=== PATIENT | male | born 1980 | race Caucasian/White ===

== ENCOUNTER 2019-02-12 16:29 | Emergency (ER) | payer MEDICAID ==
[~2019-02-12] VITALS: Ht 190.5 cm; Wt 84.1 kg
[~2019-02-12 16:29] MED LIST: ADDERALL20 MG PO; MORPHINE10 MG PO; NO HOME MEDICATIONS; NORCO 325 MG-51 TAB PO; XANAX1 MG PO
[2019-02-12 16:33] VITALS: BP 141/88; TEMP 98.7
[2019-02-12] MEDS ORDERED: NORCO 325 MG-51 TAB PO (16:58)
[2019-02-12] MEDS ORDERED: CLEOCIN HCL300 MG PO ×3 (16:58→17:21)
[2019-02-12] MEDS ORDERED: ULTRAM 50MG TAB50 MG PO (17:11)
[2019-02-12 17:28] VITALS: PULSE 120
== END 2019-02-12 17:25 | disposition home or self-care (01) ==
LOC: COL.ER 16:29
DX: K02.9 Dental caries, unspecified (principal); Z86.19 Personal history of other infectious and parasitic diseases
CPT/HCPCS: J1885

== ENCOUNTER 2019-07-31 16:21 | Emergency (ER) | payer MEDICAID ==
[~2019-07-31] VITALS: Ht 190.5 cm; Wt 86.4 kg
[~2019-07-31 16:21] MED LIST changes: +CLEOCIN HCL300 MG PO; +ULTRAM 50MG TAB50 MG PO
[2019-07-31 17:05] LABS: BASO % 0.6 % (0.0-2.0); EOS # 0.1 (0.0-0.7); EOS % 1.1 % (0-4.0); GRAN # 2.6 (1.4-6.5); GRAN % 50.4 % (42.2-75.2); HEMATOCRIT 37.8 % (42.0-52.0); HEMOGLOBIN 12.7 g/dl (13.5-18.0); LYMPH # 1.8 (1.2-3.4); LYMPH % 34.5 % (20.0-51.0); MEAN CELL VOLUME 102 fl (80.0-100.0); MEAN CORPUSCULAR HEMOGLOBIN 34 pg (27.0-31.0); MEAN CORPUSCULAR HGB CONC 34 g/dl (33.0-37.0); MEAN PLATELET VOLUME 9.7 fl (7.4-10.4); MONO # 0.7 (0.1-0.6); MONO % 13.2 % (1.7-9.3); PLATELET COUNT 281 K/mm3 (130-400); RED BLOOD COUNT 3.69 M/mm3 (4.20-5.60); REDCELL DISTRIBUTION WIDTH-CV 13.5 % (11.5-14.5)
[2019-07-31 17:09] LABS: COLLECTION METHOD CATHETER
[2019-07-31 17:18] LABS: ALANINE AMINOTRANSFERASE 156 U/L (21-72); ALBUMIN 4.1 gm/dL (3.5-5.0); ALKALINE PHOSPHATASE 167 U/L (50-136); ANION GAP 9 mmol/L (7-16); AST,SGOT 126 U/L (15-37); BILIRUBIN,TOTAL 0.4 mg/dL (0.0-1.0); BLOOD UREA NITROGEN 21 mg/dL (9-20); CALCIUM 8.8 mg/dL (8.4-10.2); CARBON DIOXIDE 25 mmol/L (22-30); CHLORIDE 108 mmol/L (98-107); CREATININE, serum 0.83 (0.66-1.25); GLUCOSE 87 mg/dL (74-106); POTASSIUM 3.7 mmol/L (3.4-5.0); SODIUM 142 mmol/L (137-145); TOTAL PROTEIN 7.2 gm/dL (6.4-8.2)
[2019-07-31 17:22] LABS: MUCOUS Present /lpf; PH 5 (5-8); SQUAMOUS EPITHELIAL None Seen /hpf; URINE APPEARANCE Clear; URINE BACTERIA Rare /hpf; URINE BILIRUBIN Negative (NEGATIVE); URINE BLOOD Negative (NEGATIVE); URINE COLOR Yellow; URINE GLUCOSE Negative (NEGATIVE); URINE KETONE Negative (NEGATIVE); URINE LEUKOCYTE ESTERASE Negative (NEGATIVE); URINE NITRATE Negative (NEGATIVE); URINE PROTEIN(semi-quant) Negative (NEGATIVE); URINE RBC 0-2 /hpf; URINE UROBILINOGEN Negative (NEGATIVE)
[2019-07-31 17:23] LABS: ALCOHOL(ethanol),MEDICAL < 10 mg/dL
[2019-07-31 17:30] LABS: TRICYCLIC ANTIDEPRESS URINE NEGATIVE
[2019-07-31 17:32] LABS: TROPONIN-I < 0.012 ng/mL (0.000-0.035)
[2019-07-31 21:45] LABS: ACETAMINOPHEN < 10 ug/mL (10-30); ALCOHOL(ethanol),MEDICAL < 10 mg/dL; SALICYLATE < 1.0 mg/dL
[2019-07-31 21:53] LABS: ARTERIAL BLD GAS O2 SATURATION 96.9 % (92-100); ARTERIAL BLD GAS TCO2 CT 22.7; ARTERIAL BLOOD GAS BASE EXCESS -2.5 (-2-2); ARTERIAL BLOOD GAS HCO3 21.6 meq/L (22-26); ARTERIAL BLOOD GAS PCO2 35.3 mmHg (35-45); ARTERIAL BLOOD GAS PO2 93.5 mmHg (80-100)
[2019-07-31 23:10] VITALS: BP 132/86; PULSE 102; TEMP 98.2
[2019-07-31 23:13] LABS: INR 0.8 (0.8-3.0); PROTHROMBIN TIME 9.8 SECONDS (9.7-12.8)
[2019-07-31 23:16] LABS: PARTIAL THROMBOPLASTIN TIME 31.8 SECONDS (26.0-37.0)
== END 2019-07-31 23:10 | disposition home or self-care (01) ==
LOC: COL.ER 16:21
PROVIDERS: Emergency Medicine; Nurse Practitioner Family
DX: T43.621A Poisoning by amphetamines, accidental (unintentional), initial encounter (principal); T40.3X1A Poisoning by methadone, accidental (unintentional), initial encounter; R41.82 Altered mental status, unspecified; R94.5 Abnormal results of liver function studies
CPT/HCPCS: J2310; J7030

== ENCOUNTER 2023-08-24 16:51 | Inpatient (IN) | payer SELFPAY ==
[~2023-08-24] VITALS: Ht 190.5 cm; Wt 80.3 kg
[~2023-08-24 16:51] MED LIST changes: +ADDERALL30 MG PO; +ATIVAN 1MG T1 MG/TAB; +FOLIC ACID 11 MG/TA1 PO; +KLONOPIN 1MG1 MG PO; +MULTI VITAMINS1 TAB PO; +NATURE'S BLEND100 M2 PO; +NEURONTIN600 MG/TAB PO; +OMNICEF 300MG300 MG PO; +SUBOXONE 8 MG-21 TAB; +SUBOXONE 8 MG-21 TAB SL; +ZANAFLEX 4MG TAB4 MG PO
[2023-08-25] MEDS ORDERED: FLEXERIL 1010 MG/TAB PO (10:16)
[2023-08-25] MEDS ORDERED: ROCEPHIN 2GM VIAL21 IV (10:16)
[2023-08-25] MEDS ORDERED: VALIUM 5MG T5 MG/TAB PO (10:17)
[2023-08-25] MEDS ORDERED: LEXAPRO20 MG PO (10:17)
[2023-08-25] MEDS ORDERED: NICODERM C21 MG/PATC TD (10:18)
[2023-08-25] MEDS ORDERED: ROXICODONE15 MG PO (10:18)
[2023-08-25] MEDS ORDERED: MELATONIN5 M1 SL (10:18)
[2023-08-25 10:19] VITALS: BP 122/75; PULSE 118; TEMP 98.4
[2023-08-25] MEDS ORDERED: MINIPRESS2 MG PO (10:19)
[2023-08-25] MEDS ORDERED: SEROQUEL 2525 MG/TAB PO (10:19)
--- NOTE | 2023-08-25 11:47 | NUR ---
PT ARRIVED TO UNIT AT 1000. PT ALERT AND ORIENTED. VITAL SIGNS STABLE. HEAD TO TOE ASSESMENT COMPLETE. MEDICATED PER EMAR. PAIN RATED AT 10/10. PAIN MEDS ADMININSTERED.PICC LINE CLEAN, DRY, INTACT. FALL PRECAUTIONS IN PLACE. MERCADO CATHETER D/C.
--- NOTE | 2023-08-25 12:18 | NUR ---
MOTHER OF PT CALLED WANTING INFORMATION ABOUT HER SONS WHEREABOUTS. I ASKED HER FOR THE PRIVACY PASSWORD, SHE GOT UPSET AND HUNG UP ON ME.
[2023-08-25 13:00] VITALS: BP_SYST 122
--- NOTE | 2023-08-25 14:50 | NUR ---
workers compensation coordinator met with patient to introduce herself and welcome him to the IPR unit. Patient reviewed and signed the data collection form for IPR services. SW provided the welcome packet with the IPR unit information. Patient confirmed he lives in [place] by himself. Patient reports his best person for contact is Alka Amin, P# [phone]. Patient reports he does not have a primary care physician but knows about the [facility]. patient reports he does not currently have insurance but he has applied for Medicaid and has had it in the past. Patient reports if he receives insurance, he would be interested in receiving primary care at [facility] [place]. Patient reports his preferred pharmacy is [facility] and when he had insurance he did not have concerns with paying for his medications. Now that he does not have insurance, he is worried it would not be affordable. SW provided information on GOOD RX and a couple prescription savings cards. Patient does not have a DPOA-HC and did not wish to complete one during his hospital stay. Patient does not have any DME at home and reported he was pretty independent at home. Patient reports the only assistance he needed was reaching and lifting heavy items. Patient reports he may have some difficulty with transportation but would be able to reach one of his friends for a ride home at discharge or utilize [facility] bus. Patient reports he has stairs to his apartment as he lives on the second floor. Patient would like to return home at discharge. Discharge Plan: Home SW placed data collection form in patient's chart.
--- NOTE | 2023-08-25 15:14 | NUR ---
pt mews score at 3 r/t high pulse rate. Heart rate has now come down significantly. Dynamap reading at 92 from 118 previous reading. Per report from transferring facility this has been the his basline, slightly elevated. notified.
--- NOTE | 2023-08-25 15:55 | NUR ---
Has lack of transportation kept you from medical appts, meetings, work, or from getting things needed for daily living? Yes to both How often do you feel lonely or isolated from those around you? never Over the past 5 days, how much of the time has pain made it hard for you to sleep? almost constantly Over the past 5 days, how often have you limited your participation in therapy due to pain? frequently Over the past 5 days, how often have you limited your day-to-day activities because of pain? occasionally Have you had 2 or more falls in the past year or any fall with an injury? no Did you have major surgery during the 100 days prior to admission? yes
[2023-08-25 16:37] VITALS: BP 111/72; PULSE 90; TEMP 98.7
[2023-08-25 17:14] VITALS: BP_SYST 111
[2023-08-25 19:53] VITALS: BP_SYST 111
--- NOTE | 2023-08-25 19:57 | NUR ---
SHIFT ASSESSMENT COMPLETE. VSS. PATIENT LAYING IN BED WATCHING TV. PATIENT COMPLIANS OF PAIN 10/10 AT NECK. PAIN MEDS GIVEN ORDERED SEE EMAR. ALL NIGHT MEDS GIVEN ORDERED. PATIENT HAS NO COMPLAINTS OR REQUEST AT THIS TIME. FALL PERCAUTIONS IN PLACE CALL LIGHT IN REACH.
[2023-08-26] VITALS (7 sets, daily range): BP systolic 111–128; BP diastolic 66–78; PULSE 69–97; TEMP 97.6–98.5
--- NOTE | 2023-08-26 06:13 | NUR ---
PATIENT SLEPT WELL THROUGH THE NIGHT WAKING UP ONLY FOR PAIN 10/10. PAIN MEDS GIVEN ORDERED. SEE EMAR. FALL PRECAUTIONS IN PLACE AND CALL LIGHT IN REACH.
--- NOTE | 2023-08-26 06:59 | NUR ---
RECIEVED REPORT FROM PACKING MACHINE OPERATOR NURSE.
--- NOTE | 2023-08-27 05:13 | NUR ---
PT reporting pain as 10/10 every four hours, able to sleep after oxycodone given. PICC in MARIO patent/secure. dressing to neck cdi.
[2023-08-27 05:35] VITALS: BP 110/77; PULSE 89; TEMP 97.9
[2023-08-27 07:04] VITALS: BP_SYST 110
--- NOTE | 2023-08-27 07:04 | NUR ---
RECIEVED REPORT FROM ALMOND HULLER NURSE
--- NOTE | 2023-08-27 09:18 | NUR ---
Pt alert and oriented X3 this am. States he slept well overnight. He is up and eatign breakfast he has requested pain medication to treat pain rated 10/10. Medicated per emar. Head to toe assessment complete, vital signs stable. Wants his pain medication every 4 hours. PICC to upper left arm flushing well with good return. He is able to ambulate to the restroom with stby assist with gate belt. Unsteady gait and impulsive at times. Pleasant mood and disposition. Call light within reach, bed alarm set.
[2023-08-27 17:50] VITALS: BP 115/76; PULSE 96; TEMP 98.8
[2023-08-28 05:13] VITALS: BP 112/71; PULSE 90; TEMP 98.5
[2023-08-28 06:46] VITALS: BP_SYST 112
--- NOTE | 2023-08-28 06:47 | NUR ---
Shift report received from night RN. No events reported overnight. Pt sleeping supine w/ even & unlabored resps. Call light in reach. Bed alarm is on.
[2023-08-28 07:06] LABS: BASO # 0.1 K/mm3 (0.0-0.2); BASO % 1.2 % (0.0-2.0); EOS # 0.3 K/mm3 (0.0-0.7); EOS % 4.3 % (0.0-4.0); GRAN # 3.1 K/mm3 (1.4-6.5); HEMATOCRIT 35.2 % (42.0-52.0); HEMOGLOBIN 11.8 g/dl (13.5-18.0); LYMPH # 3.3 K/mm3 (1.2-3.4); LYMPH % 43.1 % (20.0-51.0); MEAN CELL VOLUME 98 fl (80.0-100.0); MEAN CORPUSCULAR HEMOGLOBIN 33 pg (27-31); MEAN CORPUSCULAR HGB CONC 34 g/dl (33.0-37.0); MEAN PLATELET VOLUME 9.7 fl (7.4-10.4); MONO # 0.8 K/mm3 (0.1-0.6); PLATELET COUNT 351 K/mm3 (130-400); RED BLOOD COUNT 3.58 M/mm3 (4.20-5.60); REDCELL DISTRIBUTION WIDTH-CV 14.4 % (11.5-14.5)
[2023-08-28 07:21] LABS: ALBUMIN 3.2 gm/dL (3.5-5.0); BILIRUBIN,TOTAL 0.2 mg/dL (0.2-1.2); C-REACTIVE PROTEIN 0.45 mg/dL (0.00-0.50); CALCIUM 9.3 mg/dL (8.4-10.2); CREATININE, serum 0.72 mg/dL (0.72-1.25); POTASSIUM 4.1 mmol/L (3.5-4.5); TOTAL PROTEIN 6.4 gm/dL (6.2-8.1)
--- NOTE | 2023-08-28 08:01 | NUR ---
Pt aroused easily from sleep. Pt requesting pain medication. Will administer per PRN order when next dose is due. Posterior neck incision WA w/ dermabond & is w/o sx of infection. LUE PICC line flushing well w/ noted blood return. Pt denies other needs at this time. Call light in his reach. Bed alarm is on.
--- NOTE | 2023-08-28 08:09 | NUR ---
Lab results faxed to Dr. Biswas at [facility].
--- NOTE | 2023-08-28 09:34 | NUR ---
Pt is off the unit w/ PT.
[2023-08-28] MEDS ORDERED: SENNA-S 50 MG-81 TAB PO (11:26)
[2023-08-28] MEDS ORDERED: MIRALAX PA17 GM/Dose PO (11:27)
[2023-08-28] MEDS ORDERED: ADDERALL20 MG PO (11:29)
--- NOTE | 2023-08-28 12:13 | NUR ---
Pt sitting up in bed eating lunch independently. Pt reporting low back & neck pain at 10/10. Oxycodone given per PRN order. UA collected & sent to lab. Pt denies other needs at this time. Call light in reach. Bed alarm is on.
[2023-08-28 12:16] LABS: COLLECTION METHOD IN
[2023-08-28 12:34] LABS: SQUAMOUS EPITHELIAL None Seen /hpf (0-10); URINE APPEARANCE Clear (CLEAR/HAZY); URINE BACTERIA None Seen /hpf (NONE SEEN); URINE BLOOD Negative (NEGATIVE); URINE COLOR Yellow (YELLOW); URINE GLUCOSE Negative (NEGATIVE); URINE KETONE Negative (NEGATIVE); URINE NITRATE Negative (NEGATIVE); URINE PROTEIN(semi-quant) Negative (NEGATIVE); URINE RBC None Seen /hpf (0-2); URINE UROBILINOGEN 0.2 E.U/dL (0.2-1.0)
--- NOTE | 2023-08-28 12:39 | NUR ---
Admission QIM scores were reviewed by the team. Code of 5 chosen for eating was determined by team discussion to be the most usual performance before interventions for this patient during the assessment period. Code of 4 chosen for oral hygiene was determined by team discussion to be the most usual performance before interventions for this patient during the assessment period. Code of 4 chosen for toileting hygiene was determined by team discussion to be the most usual performance for this patient during the discharge assessment period. Code of 4 chosen for toilet transfers was determined by team discussion to be the most usual performance for this patient during the discharge assessment period.--Norah Sandhu, PD
--- NOTE | 2023-08-28 15:59 | NUR ---
ILDA contacted Marissa Gonzales to determine if a financial assistance application was completed with the patient. Marissa expressed she would assist patient today with completing this form. ILDA met with patient whom expressed PT and OT were going well and he was able to do a whole flight of stairs now. Discharge Plan: Home
--- NOTE | 2023-08-28 17:12 | NUR ---
Pt sitting up in bed eating dinner independently. Pt given PRN pain medication approx 1 hr ago. He denies other needs at this time. Call light in his reach. Bed alarm is on.
[2023-08-28 17:26] VITALS: BP 129/81; PULSE 94; TEMP 98.6
--- NOTE | 2023-08-28 18:40 | NUR ---
resting in bed, bedside shift report received from CRISTIAN Vasquez
[2023-08-28 18:49] VITALS: BP_SYST 129
--- NOTE | 2023-08-28 20:10 | NUR ---
resting in bed now, visitors were in to visit, full assessment completed, see interventions for further info, c/o pain 08/08 while lying in bed with no grimacing or moaning or moving around in bed, medicated with roxicodone 15mg po, denies other needs at this time
--- NOTE | 2023-08-28 22:00 | NUR ---
appears to be sleeping, in bed with eyes closed, resp quiet and easy
--- NOTE | 2023-08-28 23:38 | NUR ---
continues to appear to sleep
--- NOTE | 2023-08-29 02:02 | NUR ---
in bed with lights off, eyes closed, resp quiet and easy
--- NOTE | 2023-08-29 05:26 | NUR ---
awake and watching TV now, denies needs
[2023-08-29 05:41] VITALS: BP 126/53; PULSE 58; TEMP 98.2
--- NOTE | 2023-08-29 05:45 | NUR ---
was up to bathroom and voided, bladder scan revealed no urine remains in bladder
--- NOTE | 2023-08-29 06:52 | NUR ---
bedside shift report given to CRISTIAN La
--- NOTE | 2023-08-29 07:00 | NUR ---
RECIEVED REPORT FROM STEAMFITTER SUPERVISOR NURSE
[2023-08-29 07:01] VITALS: BP_SYST 126
--- NOTE | 2023-08-29 10:53 | NUR ---
PT ALERT AND ORIENTED. VITAL SIGNS STABLE. SHIFT ASSESSMENT COMPLETE. EVEN AND UNLABORED RESPR. C/O PAIN RATED 10/10. MEDICATED PER EMAR. PT IS ONE ASSIST STBY W/FWW. GAIT UNSTEADY. C/O NOT BEING ABLE TO FEEL WHEN HES URINATING. HE WAS BLADDER SCANNED WITH NO EVIDENCE OF RETENTION. DR. RUGGIERO. BED ALARM SET. CALL LIGHT WITHIN REACH. DENIES FURTHER NEEDS AT THIS TIME.
--- NOTE | 2023-08-29 14:17 | NUR ---
chip loft worker met with patient to discuss scheduling a family meeting. Patient would like his mother, Alka, via telephone and his sister, Sarah. SW contacted Alka regarding scheduling the family meeting. Patient is scheduled the family meeting for tomorrow at 10:30. SW attempted to contact patient's sister at the number patient provided. The number was to [place]. ILDA notified Norah, IPR director, of patient's family meeting.
[2023-08-29 16:45] VITALS: BP 103/74; PULSE 99; TEMP 98.3
[2023-08-30 05:39] VITALS: BP 114/72; PULSE 72; TEMP 97.9
[2023-08-30 07:00] VITALS: BP_SYST 114
--- NOTE | 2023-08-30 07:00 | NUR ---
PT RESTING IN BED. PT IS ON RA. PT IS AXOX3. PT HAS CALL LIGHT AND INSTRUCTED TO CALL WITH ALL NEEDS. BEDALARM ACTIVE AND FALL PRECAUTIONS IN PLACE.
--- NOTE | 2023-08-30 16:20 | NUR ---
bindery worker met with IPR team to discuss patient's progress and potential discharge planning. Patient is potentially able to discharge on Monday depending on his medication situation. Patient will need IV antibiotics once a day in the express unit, outpatient PT/OT, established with a primary care physician and assistance with transportation. ILDA met with the IPR team, patient and the patient's mother (via telephone) to discuss discharge planning and patient's progress. Patient has done very well with PT and OT and would be able to discharge on Monday pending his medications have been sorted out. ILDA expressed she would be assisting with establishing patient with a primary care physician, outpatient PT/OT, IV antibiotics and transportation. Patient's mother, Alka, expressed she was still working on patient's Medicaid but he is currently pending. ILDA was contacted by Alka regarding patient's pain management doctor information. Patient saw Naun Moore and Uvaldo Henriquez at [facility] [address] [facility]. P# [phone]. ILDA provided this number and information to [facility] director to provide to Dr. Loyola. ILDA was notified by Alka that patient has a neuro follow up at [facility] in [place] on 09/15 at 2:30 pm and his infection control doctor appointment in [place] was on 09/11/23 at 2:30 pm. Alka expressed patient has an compensation/benefits specialist, Kimberly Ahuja, through [place] that may be able to assist with transportation. P# [phone]. Alka expressed she was going to follow up with the civil attorney at [facility] to determine if the Medicaid was approved. Alka also expressed she may see if patient's sister could get the SSI award letter from patient's apartment to submit to Medicaid. ILDA left a message with Kimberly compensation/benefits specialist, to determine what services she could assist him with when he discharges. ILDA contacted Beatris, financial counselor, to determine if patient was approved for medicaid. Beatris expressed she would contact Medicaid. ILDA met with the patient to discuss primary care needs. Patient does not currently have insurance, so ILDA will see if the [facility] can see him until his insurance is approved. Patient would like the [facility] outpatient clinic. Patient is concerned about the transportation issues getting to and from his appointments. ILDA provided patient with resource list for [place] along with [facility] information as patient was positive for methamphetamines and there has been concerned about previous drug use. Patient was familiar with [facility]. SW contacted [facility] whom expressed they were uncertain if they would be able to follow patient's care at this time but they would follow up with their supervisor assembly and packing and return the SW's call. SW sent a referral to the express unit for patient's IV antibiotics starting Monday as patient is scheduled to discharge on Monday. ILDA contacted Kimberly compensation/benefits specialist from [employer]. Kimberly expressed they do not normally provide transportation to and from appointments but they would look into what they could provide for patient and get back with the socially responsible investment adviser. ILDA contacted Vargas Perry, [facility] auto fleet manager. Vargas expressed he would be happy to assist with figuring out the best way for patient to obtain transportation. Vargas expressed there is an application where the patient could ride the demand route instead of the fixed route but it is more expensive. ILDA will speak with the patient about the options and follow up with Vargas.
[2023-08-30 16:24] VITALS: BP 111/74; PULSE 101; TEMP 98.7
[2023-08-30 19:00] VITALS: BP_SYST 111
--- NOTE | 2023-08-30 20:26 | NUR ---
PT RESTING IN BED. WATCHING TV. HAVING POSTERIOR NECK PAIN. LEVEL 9/10. SEE MAR FOR PAIN MED GIVEN. SHIFT ASSESSMENT COMPLETED. CALL LIGHT IN REACH. BED ALARM SET. PT REPORTED TO ORDERLY DURING FAMILY MEETING THEY CHANGED ORDER THAT HE COULD BE INDEPENDENT. NO ORDERS FOUND.
--- NOTE | 2023-08-30 21:14 | NUR ---
PT REQUEST FLEXARIL. SEE MAR- GIVEN.
[2023-08-31 05:16] VITALS: BP 99/66; PULSE 69; TEMP 98.3
--- NOTE | 2023-08-31 07:15 | NUR ---
RECIEVED REPORT FROM CONVENIENCE STORE CLERK NURSE. PT SLEEPIGN BUT WOKE UP TO USE THE RESTROOM. REPORTS DR COONEY MAKING HIM INDEPENDANT, WILL FOLLOW UP WITH
[2023-08-31 07:16] VITALS: BP_SYST 99
[2023-08-31 08:15] VITALS: BP 110/74
--- NOTE | 2023-08-31 09:14 | NUR ---
PT ALERT AND ORIENTED X4. VITAL SIGNS STABLE. SHIFT ASSESSMENT COMPLETE,SEE DOCUMENTATION. PT IS ANTICIPATING GOING HOME TOMORROW. WOULD LIKE TO HAVE INDEPENDENCE IN HIS ROOM, PROVIDER AWARE. PAIN CONTINUES TO BE 10/10. MEDICATED PER EMAR. PICC IS FLUSHING WELL. PT VERBALIZED HE HAD A SIGNIFICANT BOWEL MOVEMENT YESTERDAY.
--- NOTE | 2023-08-31 15:39 | NUR ---
Gave permisson to have express unit notify his sister Sarah if he misses IV therapy appointments.
[2023-08-31 16:14] VITALS: BP 122/84; PULSE 98; TEMP 99.1
--- NOTE | 2023-08-31 16:40 | NUR ---
tree and shrub worker was contacted by patient's sister, Sarah, in regards to patient's discharge planning. ILDA expressed she was working on establishing a primary care physician, transportation, IV antibiotics and outpatient PT/OT. ILDA provided Sarah with patient's appointments for his neurologist and infection doctor. Sarah expressed she would look into transporting him to these appointments. Sarah reported she would like to be notified if patient does not make it to his IV appointments, SW will discuss this with patient for permission. ILDA contacted Beatris, financial counselor, to confirm patient applied for the financial assistance application. Beatris expressed he did. ILDA contacted [facility] for outpatient PT/OT. They expressed they would contact the social media sr strategy manager later for dates and times. ILDA contacted Vargas Perry with [employer] whom expressed they should be able to provide a month pass for the fixed route. Vargas will drop off at the hospital. SW will assist with applying for the half-fare program and demand route for the [facility] bus as well. ILDA spoke with [facility] for patient's primary care. [facility] would like to speak with Dr. Loyola. ILDA provided this information to Dr. Lyoola. SW was contacted by [facility]. Patient is scheduled for a follow up appointment on September 07 at 12 pm. SW was contacted by [facility] for patient's outpatient PT/OT. ILDA scheduled patient's outpatient OT for 09/05/23 at 3:30 pm and outpatient PT for 09/12/23 at 2 pm. ILDA met with patient to discuss updates. Patient's nurse was present to provide IV antibiotics. ILDA asked if patient would allow express unit staff to contact his sister if he missed IV appointments. Patient gave permission for express unit staff to speak with his sister if he missed any appointments. Patient signed the half-fare application and Demand Route application. SW provided information on the transit application on the ranjeet store which he can use to understand the [facility] bus route. Patient downloaded ranjeet while speaking about it. SW provided a paper with all of his follow up appointments written out. While in the room, patient's mother called the social media sr strategy manager. SW accepted the call and placed her on speaker phone to speak with her and the patient. SW provided all updates listed above. Patient's mother is still working on the Medicaid status for patient. Patient will need to submit his social security award letter to [facility] when he is out of the hospital. SW asked if patient would be okay with the social media sr strategy manager providing updates to his sister and he expressed that would be good. SW contacted admissions to update patient's information in his chart. Patient's P# is [phone]. Patient's sister is Sarah, P# [phone]. Patient reported his address was [address] [place] [address] in [place]. SW attempted to contact patient's sister, P# [phone], no answer. ILDA sent the [employer] application and Demand Route application via email to [facility]. Discharge Plan: Home with outpatient PT/OT
--- NOTE | 2023-08-31 17:12 | NUR ---
Will lack of transportation kept you from medical appts, meetings, work, or from getting things needed for daily living? no How often do you feel lonely or isolated from those around you? never Over the past 5 days, how much of the time has pain made it hard for you to sleep? almost constantly Over the past 5 days, how often have you limited your participation in therapy due to pain? occasionally Over the past 5 days, how often have you limited your day-to-day activities because of pain? occasionally
[2023-08-31 19:04] VITALS: BP_SYST 122
--- NOTE | 2023-08-31 21:29 | NUR ---
PT RESTING IN BED IN A RELAXED POSITION. PT RELATES HE TAKES SUBOXONE MORNING, EARLY AFTERNOON AND EVENING. REFUSED 2100 DOSE. REQUESTED ROXICODONE AND FLEXARIL- SEE DEC. PT INDEPENDENT IN ROOM. PT RELATES FEEL STEADY. DRAGS LT LEG ALITTLE. HAS AFO FOR FOOT DROP. CALL LIGHT IN REACH.
[2023-09-01 05:24] VITALS: BP 111/71; PULSE 80; TEMP 97.8
--- NOTE | 2023-09-01 08:40 | NUR ---
PT RESTING IN BED WITH PAIN 9/10 IN NECK AND BACK. PRN PAIN MEDICATION DECLINED AT THIS TIME. INCISION DRY AND CLEAN WITH NO DRESSING. PT UP IN ROOM INDEPENDENTLY WITH STEADY GAIT. NO NEEDS AT THIS TIME. PLANNED DISCHARGE AT 11. WILL CONTINUE TO MONITOR.
[2023-09-01] MEDS ORDERED: FLEXERIL 1010 MG/TAB PO (09:27)
[2023-09-01] MEDS ORDERED: MINIPRESS2 MG PO (09:27)
[2023-09-01] MEDS ORDERED: SUBOXONE SL (09:28)
[2023-09-01] MEDS ORDERED: MULTI VITAMINS1 TAB PO (09:31)
[2023-09-01] MEDS ORDERED: NATURE'S BLEND100 M2 PO (09:31)
[2023-09-01] MEDS ORDERED: FOLIC ACID 11 MG/TA1 PO (09:31)
--- NOTE | 2023-09-01 11:00 | NUR ---
PICC LINE REMOVED BY PAO HARTMAN. PT TO LAY FLAT FOR 30 MINUTES.
--- NOTE | 2023-09-01 11:00 | NUR ---
PT PROVIDED DISCHARGE INSTRUCTIONS. DISCUSSED FOLLOW UP APPOINTMENTS, NEW MEDICATIONS, OUTPT PT/OT, AND DAILY ABS TREATMENT. NO QUESTIONS AT THIS TIME. PT AND BELONGINGS ESCORTED OUT OF BUILDING AT THIS TIME.
--- NOTE | 2023-09-01 14:16 | NUR ---
floorworker distributor met with patient to discuss discharge planning. Patient expressed he was concerned about affording his medications. ILDA provided information about Good RX, Single Care prescription Card and Family Prescription Card and assisted patient with looking online prices. Patient expressed he would be able to look into these at the pharmacy. ILDA went to the ER entrance to get the month pass for the [facility] bus. ILDA provided this pass to the patient. Patient asked about his IV antibiotics if they could be given in the afternoon tomorrow. ILDA notified patient that his IV antibiotics will be given tomorrow morning at 9 am at the Express Unit. ILDA notified nurse of all of patient's appointments. ILDA faxed IV prescription to Express Unit. ILDA faxed discharge orders to [facility], express unit and [facility] for outpatient PT/OT. Discharge plan: Home with outpatient PT/OT
--- NOTE | 2023-09-01 14:45 | NUR ---
waterside worker was contacted by [facility] regarding patient's pain management services. SW provided the information to the [facility] where he was receiving those services. SW left a message with patient's sister to notify her of patient's discharge and he has a monthly pass for the [facility] bus. No further concerns at this time.
== END 2023-09-01 11:30 | disposition home or self-care (01) | DRG 93 ==
PROVIDERS: Physician Assistant; ADMIT Physical Medicine & Rehabilitation Sports Medicine
DX: G95.29 Other cord compression (principal); I10 Essential (primary) hypertension; R33.9 Retention of urine, unspecified; K21.9 Gastro-esophageal reflux disease without esophagitis; F41.9 Anxiety disorder, unspecified; E87.5 Hyperkalemia; F32.A Depression, unspecified; E78.5 Hyperlipidemia, unspecified; R26.89 Other abnormalities of gait and mobility; F19.10 Other psychoactive substance abuse, uncomplicated; G89.29 Other chronic pain; M54.50 Low back pain, unspecified; F10.10 Alcohol abuse, uncomplicated; K59.00 Constipation, unspecified; Z88.0 Allergy status to penicillin; Z88.8 Allergy status to other drugs, medicaments and biological substances; Z74.09 Other reduced mobility; F90.9 Attention-deficit hyperactivity disorder, unspecified type; Z72.0 Tobacco use; R32 Unspecified urinary incontinence
CPT/HCPCS: A9284; J0696; J1650